=== PATIENT | female | born 1985 ===

== ENCOUNTER 2022-01-30 13:33 | Emergency (ER) | payer OTHER, SELFPAY ==
--- NOTE | ~2022-01-30 | CT_ITS ---
EXAMINATION: NONCONTRAST HEAD CT NONCONTRAST CERVICAL SPINE CT INDICATION INFORMATION: Right occipital pain and swelling. Neck discomfort. COMPARISON: None TECHNIQUE: Separate noncontrast CT examinations of the head and cervical spine were performed. Coronal and sagittal images were created for each examination at the technologist workstation. This CT examination was performed using dose optimization techniques as appropriate, variously including the following: *Automated exposure control *Adjustment of mA and/or kV according to patient size (this includes techniques or standardized protocols for targeted exams where dose is matched to indication/reason for exam; i.e. extremities or head) *Use of iterative reconstruction technique DLP: 1502 mGy-cm FINDINGS: HEAD: No intra or extra-axial fluid collection, hemorrhage, or mass. No ventriculomegaly. No midline shift or herniation. Basal cisterns are patent. Knox-white matter differentiation is maintained. No territorial encephalomalacia. No significant volume loss. There is no abnormal attenuation within the brain parenchyma. No calvarial fracture or soft tissue abnormality. The mastoid air cells and visualized portions of the paranasal sinuses are well aerated. CERVICAL SPINE: Alignment: Straightening of the normal cervical lordosis. No subluxation. Vertebra: No acute fracture. No prevertebral soft tissue swelling. Degenerative disc disease: No significant. Preserved intervertebral disc heights. Other findings: No cervical lymphadenopathy. Visualized major salivary glands and thyroid gland are unremarkable. Visualized lung apices are clear. CT/CT head/brain wo IV con IMPRESSION: 1. No intracranial hemorrhage or calvarial fracture. 2. No subluxation or acute cervical spine fracture.
--- NOTE | ~2022-01-30 | CT_ITS ---
EXAMINATION: NONCONTRAST HEAD CT NONCONTRAST CERVICAL SPINE CT INDICATION INFORMATION: Right occipital pain and swelling. Neck discomfort. COMPARISON: None TECHNIQUE: Separate noncontrast CT examinations of the head and cervical spine were performed. Coronal and sagittal images were created for each examination at the technologist workstation. This CT examination was performed using dose optimization techniques as appropriate, variously including the following: *Automated exposure control *Adjustment of mA and/or kV according to patient size (this includes techniques or standardized protocols for targeted exams where dose is matched to indication/reason for exam; i.e. extremities or head) *Use of iterative reconstruction technique DLP: 1502 mGy-cm FINDINGS: HEAD: No intra or extra-axial fluid collection, hemorrhage, or mass. No ventriculomegaly. No midline shift or herniation. Basal cisterns are patent. [place]-white matter differentiation is maintained. No territorial encephalomalacia. No significant volume loss. There is no abnormal attenuation within the brain parenchyma. No calvarial fracture or soft tissue abnormality. The mastoid air cells and visualized portions of the paranasal sinuses are well aerated. CERVICAL SPINE: Alignment: Straightening of the normal cervical lordosis. No subluxation. Vertebra: No acute fracture. No prevertebral soft tissue swelling. Degenerative disc disease: No significant. Preserved intervertebral disc heights. Other findings: No cervical lymphadenopathy. Visualized major salivary glands and thyroid gland are unremarkable. Visualized lung apices are clear. CT/CT cervical spine wo IV con IMPRESSION: 1. No intracranial hemorrhage or calvarial fracture. 2. No subluxation or acute cervical spine fracture.
[2022-01-30 15:33] VITALS: BP 171/81; PULSE 82; RESP 16; TEMP 36.2; O2SAT 97; BMI 50.6
--- NOTE | 2022-01-30 15:35 | ED_ITS ---
HPI - Headache General Chief Complaint: Headache Stated Complaint: Abscess Back of Head No Injury Time Seen by Provider: 01/30/22 16:01 Related Data Previous Rx's Medication Instructions Recorded cyclobenzaprine 10 mg tablet 10 mg PO BEDTIME PRN muscle spasm 01/30/22 #7 tabs ketorolac 10 mg tablet 10 mg PO QID PRN pain 5 days #20 01/30/22 tabs prednisone 20 mg tablet 40 mg PO DAILY 5 days #10 tabs 01/30/22 Allergies Allergy/AdvReac Type Severity Reaction Status Date / Time acetaminophen [From Vicodin] Allergy Intermediate Hives Verified 01/30/22 15:34 hydrocodone [From Vicodin] Allergy Intermediate Hives Verified 01/30/22 15:34 PMF Social History Social History Advance Directives: No Advance Directives Information Provided: No Physical Exam 2 Vital Signs: Vital Signs: Last Vital Signs Temp 97.2 F 01/30/22 15:33 Pulse 82 01/30/22 15:33 Resp 16 01/30/22 15:33 BP 171/81 H 01/30/22 15:33 Pulse Ox 97 01/30/22 15:33 O2 Del Method 01/30/22 15:33 BMI result Body Mass Index 50.6 Course Reevaluation(s) Reevaluation #1: Right occipital swelling and tenderness for 3 days causing headache and blurry vision. Head CT/CBC was ordered from triage. Time: 15:35 Medications Administered Discontinued Medications Generic Name Dose Route Start Last Admin Trade Name Freq PRN Reason Stop Dose Admin Acetaminophen 650 mg 01/30/22 16:36 01/30/22 17:07 Acetaminophen 325 Mg Tablet PO 01/30/22 16:37 650 mg ONCE ONE Administration Ketorolac Tromethamine 30 mg 01/30/22 19:40 01/30/22 19:56 Ketorolac Tromethamine 30 Mg/Ml Vial IM 01/30/22 19:41 30 mg ONCE ONE Administration Prednisone 40 mg 01/30/22 16:31 01/30/22 17:07 Prednisone 20 Mg Tablet PO 01/30/22 16:32 40 mg ONCE ONE Administration MDM - Headache Lab Data Result diagrams: 01/30/22 16:17 01/30/22 16:17 Labs: Lab Results 01/30/22 01/30/22 Range/Units 16:17 16:17 WBC 8.5 (4.8-10.8) X10*3/uL RBC 4.52 (4.20-5.50) X10*6/uL Hgb 10.2 L (12.0-16.0) g/dl Hct 34.4 L (37.0-47.0) % MCV 76.1 L (80.0-98.0) fL MCH 22.6 L (27.0-33.0) pg MCHC 29.7 L (31.0-35.0) g/dl RDW 16.5 H (11.0-16.0) % Plt Count 302 (160-400) X10*3/uL MPV 10.1 (9.4-12.3) fL Immature Gran % (Auto) 0.7 H (0.0-0.4) % Neut % (Auto) 59.0 (45-73) % Lymph % (Auto) 27.6 (20-40) % [place] % (Auto) 5.0 (2-11) % Eos % (Auto) 7.3 H (0-4) % Baso % (Auto) 0.4 (0-2) % Lymph # (Auto) 2.4 (1.2-4.9) X10*3/uL [place] # (Auto) 0.4 (0.1-1.2) X10*3/uL Eos # (Auto) 0.6 H (0.0-0.4) X10*3/uL Baso # (Auto) 0.0 (0.0-0.2) X10*3/uL Abs Immat Gran (auto) 0.06 H (0.00-0.03) X10*3/uL Absolute Neuts (auto) 5.0 (2.0-8.3) x10*3/uL Absolute Nucleated RBC 0.000 (0.0-0.012) X10*3/uL Nucleated RBC % (auto) 0.0 (0.0-0.2) /100WBC Sodium 142 (135-145) mmol/L Potassium 4.2 (3.3-5.1) mmol/L Chloride 106 (96-108) mmol/L Carbon Dioxide 28 (22-29) mmol/L Anion Gap 12 (12-20) BUN 13 (9-16) mg/dL Creatinine 0.78 (0.5-1.4) mg/dL Estim Creat Clear Calc 133.6 Estimated GFR > 60 Random Glucose 85 (60-115) mg/dL Calcium 8.9 (8.4-10.2) mg/dL Total Bilirubin 0.2 (0.0-1.0) mg/dL AST 15 (5-31) U/L ALT 22 (0-31) U/L Alkaline Phosphatase 175 H (39-117) U/L Total Protein 6.6 (6.5-8.0) g/dL Albumin 3.9 (3.5-5.0) g/dL Discharge Plan Discharge Clinical Impression: Headache, Migraine Patient Disposition: Home, Self-Care Instructions: Migraine Headache (ED), Muscle Spasm (ED), General Headache (ED) Additional Instructions: labs, head CT scan, and cerivical SPine CT scan is normal. You will need Follow up with your PCP and neurologist. Return to the ED immediately for any loss of vision, slurred speech, facial droop, paralysis of extremities, neck stiffness, fever, chills, photophobia, nausea, vomiting, worsening headache, ear pain, ear discharge, swelling redness behind on from here, chest pain, shortness of breath, or any other concerning symptoms. Prescriptions: New ketorolac 10 mg tablet 10 mg PO QID PRN (Reason: pain) 5 Days Qty: 20 0RF Rx Instructions: REceived 30mg IM of toradol prednisone 20 mg tablet 40 mg PO DAILY 5 Days Qty: 10 0RF cyclobenzaprine 10 mg tablet 10 mg PO BEDTIME PRN (Reason: muscle spasm) Qty: 7 0RF Rx Instructions: side effect is drowsiness. Referrals: Lucy King MD [Physician] - (Headache. management of migraines.) Stand Alone Forms: Work/School Release Interventions: ED Discharge Assessment Last Done: 01/30/22 20:37 Discharge Date/Time: 01/30/22 20:38 Print Language: Wolof
[2022-01-30 16:24] LABS: MANUAL DIFF FLAG NO
--- NOTE | 2022-01-30 16:29 | ED.GENADULT ---
HPI - General Adult General Chief complaint: Headache Stated complaint: Abscess Back of Head No Injury Time Seen by Provider: 01/30/22 16:01 Source: patient Mode of arrival: ambulatory Limitations: no limitations History of Present Illness HPI narrative: 36 yold female with pmh of migraines and muscle spasm presetns to the ED for right occipital headache for the past two days. Patient denies ear pain, sore throat, fever, chills, ear discharge, loss of visions, slurred speech, paralysis of extremities. Patient denies any recent trauma to the head. patient denies any neck stiffness, photophobia, or rash. Patient secondary complaint is muscle spasm of right shoulder muscles. Patient denies any pleurisy, chest pain, shortness of breath, or coughing up blood. Related Data Previous Rx's Medication Instructions Recorded cyclobenzaprine 10 mg tablet 10 mg PO BEDTIME PRN muscle spasm 01/30/22 #7 tabs ketorolac 10 mg tablet 10 mg PO QID PRN pain 5 days #20 01/30/22 tabs prednisone 20 mg tablet 40 mg PO DAILY 5 days #10 tabs 01/30/22 Allergies Allergy/AdvReac Type Severity Reaction Status Date / Time acetaminophen [From Vicodin] Allergy Intermediate Hives Verified 01/30/22 15:34 hydrocodone [From Vicodin] Allergy Intermediate Hives Verified 01/30/22 15:34 Review of Systems Review of Systems: RIght sided headcahe Yes all other systems are reviewed and are negative [facility] Social History Social History Advance Directives: No Advance Directives Information Provided: No Physical Exam ED Vital Signs: Vital Signs - 24 hr 01/30/22 15:33 Temperature 97.2 F Pulse Rate 82 Respiratory Rate 16 Blood Pressure 171/81 H Pulse Oximetry 97 Oxygen Delivery Method Room Air BMI result Body Mass Index 50.6 Const General: cooperative, healthy appearing, comfortable, no acute distress, well developed, alert, awake and Physically active Orientation/consciousness: patient oriented x3 HENMT Head: Yes normal to inspection, Yes No palpable skull fracture present, Yes normocephalic, Yes atraumatic and No abrasion Head images: 1. positive for tenderness on palpation. negative for erythema, mass, fluctuance, or ecchymosis. Ears: hearing grossly normal bilaterally, external ears normal, TM's normal bilaterally, EAC's normal, mastoids normal and no periauricular adenopathy Throat: Yes posterior oropharynx normal, Yes tonsils normal and Yes uvula midline Eyes General: appearance normal, both eyes and all related structures Neck Neck: Yes normal visual inspection, Yes full ROM, Yes no lymphadenopathy, Yes no meningeal signs, Yes trachea midline, Yes supple, No anterior neck swelling and No tender Chest Chest palpation & inspection: normal inspection of the chest and normal palpation of entire chest wall Resp Effort & Inspection: normal respiratory effort and able to speak in complete sentences Auscultation: clear to auscultation bilaterally Cardio Jugular venous distension: no JVD Heart sounds: S1 normal heart sound present and S2 normal heart sound present GI Inspection: Yes normal to inspection and No abdominal wall ecchymosis Palpation (GI): Soft to palpation, not firm, nontender, no guarding and not rigid General: No CVA tenderness and Yes no CVA tenderness Back/Spine/Pelvis Back: no CVA tenderness, No CVA tenderness and No back tenderness Skin General skin exam: no rashes or lesions noted and elasticity normal Neuro General: patient oriented x3, gait normal, tone normal, no meningeal signs and CN's II-XI intact bilaterally Cranial nerves: Yes CN's II-XII intact bilaterally Extrem General: Yes normal to inspection and Yes full ROM Psych Appearance: grossly normal, well kempt and not disheveled Course Course Course Narrative: labs and head Ct scan ordered by Triage. Will give steriords and tyelnol. patient states has taken allergies in the past. Reevaluation(s) Reevaluation #1: Head CT and cervical spine CT scan is normal. NEgative for any neuro deficitis. patient denies any blurry vision presently in the ED. History and exam indicate tension headache vs migraine, vs muscle spams. Patient headache resolved. patient informed to follow up [facility] neurologist. Time: 20:11 Medications Administered Discontinued Medications Generic Name Dose Route Start Last Admin Trade Name Nestorq PRN Reason Stop Dose Admin Acetaminophen 650 mg 01/30/22 16:36 01/30/22 17:07 Acetaminophen 325 Mg Tablet PO 01/30/22 16:37 650 mg ONCE ONE Administration Ketorolac Tromethamine 30 mg 01/30/22 19:40 01/30/22 19:56 Ketorolac Tromethamine 30 Mg/Ml Vial IM 01/30/22 19:41 30 mg ONCE ONE Administration Prednisone 40 mg 01/30/22 16:31 01/30/22 17:07 Prednisone 20 Mg Tablet PO 01/30/22 16:32 40 mg ONCE ONE Administration Medical Decision Making MDM Narrative Medical decision making narrative: Headache, migraine Lab Data Result diagrams: 01/30/22 16:17 01/30/22 16:17 Labs: Lab Results 01/30/22 01/30/22 Range/Units 16:17 16:17 WBC 8.5 (4.8-10.8) X10*3/uL RBC 4.52 (4.20-5.50) X10*6/uL Hgb 10.2 L (12.0-16.0) g/dl Hct 34.4 L (37.0-47.0) % MCV 76.1 L (80.0-98.0) fL MCH 22.6 L (27.0-33.0) pg MCHC 29.7 L (31.0-35.0) g/dl RDW 16.5 H (11.0-16.0) % Plt Count 302 (160-400) X10*3/uL MPV 10.1 (9.4-12.3) fL Immature Gran % (Auto) 0.7 H (0.0-0.4) % Neut % (Auto) 59.0 (45-73) % Lymph % (Auto) 27.6 (20-40) % [place] % (Auto) 5.0 (2-11) % Eos % (Auto) 7.3 H (0-4) % Baso % (Auto) 0.4 (0-2) % Lymph # (Auto) 2.4 (1.2-4.9) X10*3/uL [place] # (Auto) 0.4 (0.1-1.2) X10*3/uL Eos # (Auto) 0.6 H (0.0-0.4) X10*3/uL Baso # (Auto) 0.0 (0.0-0.2) X10*3/uL Abs Immat Gran (auto) 0.06 H (0.00-0.03) X10*3/uL Absolute Neuts (auto) 5.0 (2.0-8.3) x10*3/uL Absolute Nucleated RBC 0.000 (0.0-0.012) X10*3/uL Nucleated RBC % (auto) 0.0 (0.0-0.2) /100WBC Sodium 142 (135-145) mmol/L Potassium 4.2 (3.3-5.1) mmol/L Chloride 106 (96-108) mmol/L Carbon Dioxide 28 (22-29) mmol/L Anion Gap 12 (12-20) BUN 13 (9-16) mg/dL Creatinine 0.78 (0.5-1.4) mg/dL Estim Creat Clear Calc 133.6 Estimated GFR > 60 Random Glucose 85 (60-115) mg/dL Calcium 8.9 (8.4-10.2) mg/dL Total Bilirubin 0.2 (0.0-1.0) mg/dL AST 15 (5-31) U/L ALT 22 (0-31) U/L Alkaline Phosphatase 175 H (39-117) U/L Total Protein 6.6 (6.5-8.0) g/dL Albumin 3.9 (3.5-5.0) g/dL Discharge Plan Discharge Clinical Impression: Headache, Migraine Patient Disposition: Home, Self-Care Instructions: Migraine Headache (ED), Muscle Spasm (ED), General Headache (ED) Additional Instructions: labs, head CT scan, and cerivical SPine CT scan is normal. You will need Follow up with your PCP and neurologist. Return to the ED immediately for any loss of vision, slurred speech, facial droop, paralysis of extremities, neck stiffness, fever, chills, photophobia, nausea, vomiting, worsening headache, ear pain, ear discharge, swelling redness behind on from here, chest pain, shortness of breath, or any other concerning symptoms. Prescriptions: New ketorolac 10 mg tablet 10 mg PO QID PRN (Reason: pain) 5 Days Qty: 20 0RF Rx Instructions: REceived 30mg IM of toradol prednisone 20 mg tablet 40 mg PO DAILY 5 Days Qty: 10 0RF cyclobenzaprine 10 mg tablet 10 mg PO BEDTIME PRN (Reason: muscle spasm) Qty: 7 0RF Rx Instructions: side effect is drowsiness. Referrals: Lucy King MD [Physician] - (Headache. management of migraines.) Stand Alone Forms: Work/School Release Interventions: ED Discharge Assessment Last Done: 01/30/22 20:37 Discharge Date/Time: 01/30/22 20:38 Print Language: Citizen [place]
[2022-01-30 16:38] LABS: Basophils Percent Auto 0.4 % (0-2); Eosinophils Absolute Auto 0.6 X10*3/uL (0.0-0.4); Eosinophils Percent Auto 7.3 % (0-4); Hematocrit 34.4 % (37.0-47.0); Hemoglobin 10.2 g/dl (12.0-16.0); Imm Gran Abs Auto 0.06 X10*3/uL (0.00-0.03); Imm Gran Pct Auto 0.7 % (0.0-0.4); Lymphocytes Absolute Auto 2.4 X10*3/uL (1.2-4.9); Lymphocytes Percent Auto 27.6 % (20-40); Mean Corpuscular HGB Conc 29.7 g/dl (31.0-35.0); Mean Corpuscular Hemoglobin 22.6 pg (27.0-33.0); Mean Corpuscular Volume 76.1 fL (80.0-98.0); Mean Platelet Volume 10.1 fL (9.4-12.3); Monocytes Absolute Auto 0.4 X10*3/uL (0.1-1.2); Platelet Count 302 X10*3/uL (160-400); Red Blood Count 4.52 X10*6/uL (4.20-5.50); Red Cell Distribution Width 16.5 % (11.0-16.0); White Blood Count 8.5 X10*3/uL (4.8-10.8)
[2022-01-30 16:55] LABS: Alanine Aminotransferase 22 U/L (0-31); Albumin Level 3.9 g/dL (3.5-5.0); Alkaline Phosphatase 175 U/L (39-117); Anion Gap 12 (12-20); Aspartate Amino Transferase 15 U/L (5-31); Bilirubin Total 0.2 mg/dL (0.0-1.0); Blood Urea Nitrogen 13 mg/dL (9-16); Calcium 8.9 mg/dL (8.4-10.2); Carbon Dioxide 28 mmol/L (22-29); Chloride 106 mmol/L (96-108); Creatinine Clr Calc Pharmacy 133.6; Estimated Glomerular Filt Rate > 60; Glucose Random 85 mg/dL (60-115); Potassium 4.2 mmol/L (3.3-5.1); Sodium 142 mmol/L (135-145); Total Protein 6.6 g/dL (6.5-8.0)
[2022-01-30] MEDS: Acetaminophen 325 MG TABLET 650 MG PO (17:07)
[2022-01-30] MEDS: predniSONE 20 MG TABLET 40 MG PO (17:07)
[2022-01-30] MEDS: Ketorolac Tromethamine 30 MG/ML VIAL IM (19:56)
--- NOTE | 2022-01-30 20:00 | PC.NURSE ---
pt medicated according to MAR reported 9/10 pain at this time.
== END 2022-01-30 20:38 | disposition home or self-care (01) ==
PROVIDERS: Emergency Medicine; Physician Assistant; Emergency Provider Internal Medicine
DX: G43.909 Migraine, unspecified, not intractable, without status migrainosus (principal); M54.2 Cervicalgia; Z79.899 Other long term (current) drug therapy
CPT/HCPCS: 36415; 70450; 72125; 80053; 85025; 96372; 99283; 99284; J1885

== ENCOUNTER → 2023-01-03 15:47 | Outpatient (BNVA) | payer OTHER, SELFPAY | PROVIDERS: PCP Family Medicine; Visit Provider Physician Assistant Surgical ==

== ENCOUNTER 2023-01-10 16:21 | Outpatient (AMB) | payer OTHER, SELFPAY ==
--- NOTE | 2023-01-10 15:37 | MHC.OFFVISWM ---
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 Required: No Allergies acetaminophen [From Vicodin] Allergy (Intermediate, Verified 01/03/23 16:00) Hives hydrocodone [From Vicodin] Allergy (Intermediate, Verified 01/03/23 16:00) Hives Medication List - Last Reconciled 01/10/23 by GIANCARLO Jones fluticasone propionate 110 mcg/actuation (Flovent HFA) 2 puffs inhalation BID lisinopril 5 mg PO DAILY melatonin mg PO BEDTIME PRN [multivitamin w minerals PO DAILY] topiramate 25 mg PO DAILY HPI HPI Comments History of Present Illness Details Pt is here to start the [facility] surgical weight loss program. She heard about our program from her PCP. Her goal is to lose weight and achieve a healthy lifestyle as well as to improve, if not resolve, obesity related medical conditions, including htn. She reports first being concerned about her weight 7-8 years ago, highest weight to date was 292. Current weight is 289 pounds with a BMI of 51.2. She has tried multiple methods of weight loss including fad diets, [facility] weight loss program without permanent results as she had anxiety at the time of surgery. She lives with her 2 kids and 2 dogs. 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 She wakes at:?6am, and goes to bed at?10 pm. Dinner is at 5-6pm. Breakfast: naked fruit smoothie, coffee w almond milk/stevia AM snack: skip Lunch: shrimp scampi w pasta PM snack: skip Dinner: leftover salad or baked chicken After dinner: chips or popcorn once weekly Other snacks: chips or candy Liquids: 40-60 oz water, 12 oz diet coke/diet pepsi, no sugar iced tea Alcohol/marijuana/tobacco intake: 2 etoh beverages per week or less, edible cannabis for knee or shoulder pain QOD, no tobacco Exercise: walking, 200 calories 2 days per week, no gym membership, weights and bands at home, could join a gym if wanted. GERD score: 19 YIN score: 1 ESS score: 6 QOL score: 96 [facility] Surgical History (Updated 01/03/23 @ 16:06 by DONNA Aceves) Hx of breast reduction, elective Family History (Updated 01/03/23 @ 16:10 by DONNA Aceves) Mother No problems noted. 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 She states this is her third attempt at a SWL program (x 2 at [facility]-stopped prior to surgery due to anxiety) Blood work, h pylori , CXR, ECG, Abd US and UGI have been ordered. She is being scheduled for RD and BH initial consultations. She will start SWL classes and watch the first three videos before her next appointment. ? Adequate sleep of 7-8 hours per night discussed, awakening at 6 am and going to bed around 10 pm ? Purchase body composition analyzer scale (Benjy ellis or Guy recommended) and check weight weekly. The best time to do this is first thing in the morning after going to the bathroom. 1. Nutritional counseling: Be sure to careful read the number of scoops per shake Start with 1 Celebrate Rebuild shake ([facility] [employer], [place], [employer]), (2 scoops in 20 oz unsweetened almond milk) at 7am-9am 2 protein bars (Celebrate bars at [facility] [employer], [place], [employer]) at 10am-12pm and another one at 2pm-4pm Dinner at 530-6pm (10 forks of protein and 10 forks of salad/vegetables). Meal to include lean meat (beef, fish, pork, turkey, chicken), cooked vegetables or a salad with olive oil and/or fruits (berries, pears, apples, kiwi). Avoid salt, breads, potatoes, rice, pasta, desserts. Try to drink 64 oz of water daily and avoid soda and juices. ?2. Each shake would be drunk slowly, like coffee in a period of 2 hours. ?3. Cut each bar in 4 pieces and eat each piece in 30 min ?to make each bar last 2 hours. ?4. I emphasized the importance of measuring accurately the food portion and measure it carefully when serving the food on the plate ?5. The meal portions include 10 full-size forks of meat and 10 full-size forks of salad. You always eat the meat portion but you can replace up to half of the forks of salad/vegetables with rice, potatoes or pasta, or a fruit ?if you like. The less you do it the better weight loss will be. ?6. One full-size fork is what can be scooped on the fork without falling aside and not what can be bit with the fork. Use regular forks like those you find in a typical restaurant. ?7.? Please send me weight measurements as soon as possible and then once a week. Always include your diet and exercise plan. Alternatively come weekly at the office for weight checks and send me the measurements. ?8. Exercise counseling: Begin by watching a stretching for beginners video. Start slowly and begin to stretch your muscles. You should do this before and after each exercise session to prevent injury. Please join [employer] gym near your home. Ask the assistant housekeeping manager or one of the trainers how to use the machines if you are unfamiliar with them. Start elliptical with a resistance of 2. Increase resistance by 1 every 3 min to your most comfortable resistance with a max resistance of 8. Reduce the resistance by 1 every 3 minutes back down to 2 and repeat cycles for 300 calories. Alternatively, start treadmill with a speed of 3.0 and incline of 0, increasing incline by 1 every 3 minutes to the highest comfortable level (max 6 for now) then decrease in the same fashion. Repeat process to a goal of 300 calories. Goal of 2000 calories burned or more weekly. You may also consider use of the stationary bike. The easiest would be to chose the fat-burn or interval training program on the machine and do this until you reach the 300 calorie goal. Alternatively, you can manually adjust the resistance in a similar fashion as mentioned above, (resistance of 2-8 with a goal speed of 12 mph). Tracking calories is essential. 9. Alternatively start walking outside daily, tracking calories with a goal of 300 calories per day, daily. You can download the [employer] which can track your time, distance and calories while walking outside. You press start in the devin when you start and then stop when you are finished. 10.? It is important to avoid for at least 18 months postoperatively and it has been discussed at the information session 11. Please get labs, EKG and chest X-Ray within 1 week. 12. Discussed and answered all questions regarding?obtained consent to participate in the [place] [facility] Bariatric?Registry. 13. Please follow the diet plan exactly, without any change. If you do not like something about the plan or you feel hungry, you need to communicate with me so I can help you revise the plan. You should not change the plan yourself. Text me at [phone] 14. Goal is to lose at least 12 pounds in the first month 15. Goal is to lose 10% of your weight before surgery, which is about 29 lbs. Ultimate weight goal: 260 lbs before surgery Patient is morbidly obese and is not considered stable at this time.?I spent a total of 70 minutes reviewing/updating records, examining the patient and counseling the patient on weight management as detailed above. Orders: Orders Insulin Today E66.01 - Morbid (severe) obesity due to excess calories Lipid Panel Today E66.01 - Morbid (severe) obesity due to excess calories Complete Blood Count Auto Diff Today E66.01 - Morbid (severe) obesity due to excess calories Zinc Today E66.01 - Morbid (severe) obesity due to excess calories Comprehensive Met. Panel Today E66.01 - Morbid (severe) obesity due to excess calories Vitamin A Today E66.01 - Morbid (severe) obesity due to excess calories C Reactive Protein Today E66.01 - Morbid (severe) obesity due to excess calories PTHI Today E66.01 - Morbid (severe) obesity due to excess calories TSH reflex Free T4 Today E66.01 - Morbid (severe) obesity due to excess calories H Pylori Breath Test Today E66.01 - Morbid (severe) obesity due to excess calories Hemoglobin A1c Today E66.01 - Morbid (severe) obesity due to excess calories US abdomen comp w elastography Today E66.01 - Morbid (severe) obesity due to excess calories ECG 12 lead EKG Today E66.01 - Morbid (severe) obesity due to excess calories FL upper GI w air Today E66.01 - Morbid (severe) obesity due to excess calories IRON PROFILE Today E66.01 - Morbid (severe) obesity due to excess calories Vitamin B12 and Folate Today E66.01 - Morbid (severe) obesity due to excess calories Vitamin B1 Today E66.01 - Morbid (severe) obesity due to excess calories Ferritin Today E66.01 - Morbid (severe) obesity due to excess calories Vitamin D 25-OH Total Today E66.01 - Morbid (severe) obesity due to excess calories XR chest 2V Today E66.01 - Morbid (severe) obesity due to excess calories Referrals Behavioral Health Referral E66.01 - Morbid (severe) obesity due to excess calories Nutrition/Dietitian Referral E66.01 - Morbid (severe) obesity due to excess calories Telehealth Telehealth Location of provider rendering services: practice address Location of patient: address on file Patient Identification confirmed using: Name, : Yes Telehealth method: voice only Patient verbally consented to treatment: Yes Patient verbally consented to billing insurance company: Yes Patient informed of any privacy concerns related to visit: Yes Minutes spent on Phone/Video with Pt.: 40 Coding Level of Care Code Tele New Pt Level 5 (54306) Diagnoses Morbid obesity E66.01 Time Spent (min) 04
[2023-01-10 16:56] VITALS: BMI 51.2
== END 2023-01-10 16:46 | disposition home or self-care (01) ==
LOC: HO.HBS 16:21
PROVIDERS: PCP Family Medicine; Visit Provider Physician Assistant Surgical
DX: E66.01 Morbid (severe) obesity due to excess calories (principal); Z68.43 Body mass index [BMI] 50.0-59.9, adult
CPT/HCPCS: 99204

== ENCOUNTER → 2023-01-10 16:21 | Outpatient (BNVA) | payer OTHER, SELFPAY | PROVIDERS: PCP Family Medicine; Visit Provider Physician Assistant Surgical | DX: E66.01 Morbid (severe) obesity due to excess calories (principal) ==

== ENCOUNTER 2023-02-06 09:21 | Outpatient (REF) | payer OTHER, SELFPAY ==
[2023-02-06 10:47] LABS: MANUAL DIFF FLAG NO
[2023-02-06 11:12] LABS: Estimated Average Glucose 120 mg/dL; Hemoglobin A1c % 5.8 % (<6.0)
[2023-02-06 11:13] LABS: Basophils Percent Auto 0.3 % (0-2); Eosinophils Absolute Auto 0.2 X10*3/uL (0.0-0.4); Eosinophils Percent Auto 1.8 % (0-4); Hematocrit 32.2 % (37.0-47.0); Hemoglobin 9.6 g/dl (12.0-16.0); Imm Gran Pct Auto 0.8 % (0.0-0.4); Lymphocytes Absolute Auto 1.5 X10*3/uL (1.2-4.9); Lymphocytes Percent Auto 12.7 % (20-40); Mean Corpuscular HGB Conc 29.8 g/dl (31.0-35.0); Mean Corpuscular Hemoglobin 21.7 pg (27.0-33.0); Mean Corpuscular Volume 72.7 fL (80.0-98.0); Mean Platelet Volume 10.6 fL (9.4-12.3); Monocytes Absolute Auto 0.5 X10*3/uL (0.1-1.2); Neutrophils Absolute Auto 9.6 x10*3/uL (2.0-8.3); Neutrophils Percent Auto 80.4 % (45-73); Platelet Count 271 X10*3/uL (160-400); Red Blood Count 4.43 X10*6/uL (4.20-5.50); Red Cell Distribution Width 15.2 % (11.0-16.0); White Blood Count 11.9 X10*3/uL (4.8-10.8)
[2023-02-06 11:44] LABS: Alanine Aminotransferase 15 U/L (0-31); Albumin Level 4.1 g/dL (3.5-5.0); Alkaline Phosphatase 123 U/L (39-117); Anion Gap 11 (12-20); Aspartate Amino Transferase 13 U/L (5-31); Bilirubin Total 0.5 mg/dL (0.0-1.0); Blood Urea Nitrogen 15 mg/dL (9-16); C Reactive Protein 2.58 mg/dL (< or = 0.50); Carbon Dioxide 23 mmol/L (22-29); Chloride 108 mmol/L (96-108); Cholesterol 175 mg/dL (<200); Estimated Glomerular Filt Rate > 60; Glucose Random 94 mg/dL (60-115); HDL Cholesterol 44 mg/dL (>40); Iron 55 mcg/dL (30-160); LDL Cholesterol Calculated 107 mg/dL (<100); Percent Iron Saturation 17 % (15-50); Potassium 3.9 mmol/L (3.3-5.1); Sodium 138 mmol/L (135-145); Total Iron Binding Capacity 318 mcg/dL (228-428); Total Protein 7.1 g/dL (6.5-8.0); Triglycerides 123 mg/dL (<150); Unsaturated Iron Binding 263 ug/dL
[2023-02-06 12:03] LABS: Ferritin 30 ng/mL (10-122); Insulin 8 uU/mL (2-29); TSH reflex Free T4 1.66 uIU/mL (0.32-4.0); Vitamin D 25-OH Total 35.4 ng/mL (>30)
[2023-02-06 12:13] LABS: Vitamin B12 730 pg/mL (200-900)
[2023-02-07 10:50] LABS: H Pylori Breath Test Negative (Negative)
[2023-02-08 11:59] LABS: Calcium (PTHI) 8.8 mg/dL (8.6-10.2); PTHI 84 pg/mL (16-77)
[2023-02-09 15:59] LABS: Zinc 50 mcg/dL (60-130)
[2023-02-11 01:28] LABS: Vitamin B1 14 nmol/L (8-30)
[2023-02-12 02:54] LABS: Vitamin A 32 mcg/dL (38-98)
== END 2023-02-06 09:22 | disposition home or self-care (01) ==
LOC: HO.LAB 09:21
PROVIDERS: PCP Family Medicine; Visit Provider Physician Assistant Surgical
DX: E66.01 Morbid (severe) obesity due to excess calories (principal); Z79.899 Other long term (current) drug therapy
CPT/HCPCS: 36415; 80053; 80061; 82306; 82607; 82728; 82746; 83013; 83036; 83525; 83540; 83970; 84425; 84443; 84590; 84630; 85025; 86140; 99211

== ENCOUNTER 2023-02-06 09:43 | Outpatient (AMB) | payer OTHER, SELFPAY ==
--- NOTE | 2023-02-06 09:57 | MHC.OFFVISWM ---
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: No Allergies acetaminophen [From Vicodin] Allergy (Intermediate, Verified 01/03/23 16:00) Hives hydrocodone [From Vicodin] Allergy (Intermediate, Verified 01/03/23 16:00) Hives Medication List - Last Reconciled 02/06/23 by GIANCARLO Jones fluticasone propionate 110 mcg/actuation (Flovent HFA) 2 puffs inhalation BID lisinopril 5 mg PO DAILY melatonin mg PO BEDTIME PRN [multivitamin w minerals PO DAILY] topiramate 25 mg PO DAILY HPI HPI Comments History of Present Illness Details The patient is a pleasant 37 year old female who returns to the clinic for pre-operative surgical weight loss management. They were last seen in the office on 289, recorded weight at that time was 289 pounds, with a BMI of 51.2. Today's weight is 285.8 pounds and BMI is 50.6. There has been a weight loss of 3.2 pounds since initiating the surgical weight loss program on 01/03/23 with a total body weight loss of 1.1 %. Pre op work up completed as follows: SWL classes:? [] BH appts: 02/19/23 ? ? RD appts: 02/11/23 Labs: 02/06/23 H. pylori: 02/06/23 CXR: 02/06/23 EK02/06/23 ABD U/S: 03/19/23 UGI: 03/19/23 The patient reports she is trying to follow the plans. She was doing 2 shakes, 2 bars and 2 meals. The patient does have a body composition scale. They also have not been communicating weekly. Current meal plan includes: 1 Celebrate Rebuild shake ([facility] [employer], [employer], [place]), (2 scoops in 20 oz unsweetened almond milk) at 7am-9am 2 protein bars (Celebrate bars at [facility] [employer], [employer], [place]) at 10am-12pm and another one at 2pm-4pm Dinner at 530-6pm (10 forks of protein and 10 forks of salad/vegetables). Drinkning 60 oz daily Current exercise plan includes: walking 3 days per week now down to 2 days per week due to grad school Just joined [facility] Surgical History (Updated 01/03/23 @ 16:06 by DONNA Aceves) Hx of breast reduction, elective Family History (Updated 01/03/23 @ 16:10 by DONNA Aceves) Mother No problems noted. 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 We discussed reading the e-mail that I had center outlining the plan exactly as well as starting exercise. She states that she has been very busy with her graduate school studies which should conclude in the next couple of weeks. We also discussed her lack of communication. Discussed the importance of texting weekly including her weight measurements and if she is having any problems or questions regarding her meal plan or exercise plan. Return to clinic 3 weeks. Coding Level of Care Code Est Pt Level 3 (48490) Diagnoses Morbid obesity E66.01
[2023-02-06 10:12] VITALS: BMI 50.6
== END 2023-02-06 10:14 | disposition home or self-care (01) ==
PROVIDERS: PCP Family Medicine; Visit Provider Physician Assistant Surgical
DX: E66.01 Morbid (severe) obesity due to excess calories (principal); Z68.43 Body mass index [BMI] 50.0-59.9, adult
CPT/HCPCS: 99213

== ENCOUNTER → 2023-02-11 14:15 | Outpatient (BNVA) | payer OTHER, SELFPAY | PROVIDERS: PCP Family Medicine; Visit Provider Dietitian, Registered | DX: E66.9 Obesity, unspecified (principal); Z71.3 Dietary counseling and surveillance | CPT/HCPCS: 97802 ==

== ENCOUNTER → 2023-02-26 16:22 | Outpatient (BNVA) | payer OTHER, SELFPAY | PROVIDERS: PCP Family Medicine; Visit Provider Counselor Mental Health ==

== ENCOUNTER 2023-03-06 15:02 | Outpatient (AMB) | payer OTHER, SELFPAY ==
[2023-03-06 08:04] VITALS: BMI 45.6
--- NOTE | 2023-03-06 08:04 | A.OFFVIS_ITS ---
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: No Allergies acetaminophen [From Vicodin] Allergy (Intermediate, Verified 01/03/23 16:00) Hives hydrocodone [From Vicodin] Allergy (Intermediate, Verified 01/03/23 16:00) Hives Medication List - Last Reconciled 03/06/23 by GIANCARLO Jones fluticasone propionate 110 mcg/actuation (Flovent HFA) 2 puffs inhalation BID lisinopril 5 mg PO DAILY melatonin mg PO BEDTIME PRN [multivitamin w minerals PO DAILY] norethindrone (contraceptive) 0.35 mg PO DAILY topiramate 25 mg PO DAILY vitamin A palmitate 3,000 mcg PO DAILY 90 days zinc gluconate 30 mg PO DAILY 90 days HPI HPI Comments History of Present Illness Details The patient is a pleasant 37 year old female who returns to the clinic for pre-operative surgical weight loss management. They were last seen in the office on 02/06/2023, recorded weight at that time was to 85.8 pounds, with a BMI of 50.6. Today's weight is 257.6 pounds and BMI is 45.6. There has been a weight loss of 31.4 pounds since initiating the surgical weight loss program on 01/03/2023 with a total body weight loss of 10.8 %. Pre op work up completed as follows: SWL classes:? [] appts: Cleared-02/26/2023? ? RD appts: Cleared-02/11/2023 Labs: 02/06/23-low a, zinc H. pylori: 02/06/23-negative CXR: Not yet done at [facility], done at [facility] but not faxed over EKG: Not yet at [facility], done at [facility] but not faxed over ABD U/S: 03/19/23 UGI: 03/19/23 The patient reports she has covid and has been out of work. She has had intermittent menorrhagia and has been started on oral BCP by her Local Owner Operator Truck Driver. She states she has been very regimented with the meal plan and exercise plan. Current meal plan includes: 1 Celebrate Rebuild m[place]ake ([employer], [employer], [employer]), (2 scoops in 20 oz unsweetened almond milk) at 7am-9am 2 protein bars (Celebrate bars) at 10am- 12pm and another one at 2pm-4pm Dinner at 530-6pm (10 forks of protein and 10 forks of salad/vegetables). Drinking 60 oz daily Current exercise plan includes: walking 45 minutes 3 x per week, 2 days per week pilates video x 30 min Just joined PF treadmill 15 minutes, stretching, bike /elliptical PFSH Surgical History (Updated 01/03/23 @ 16:06 by DONNA Aceves) Hx of breast reduction, elective Family History (Updated 01/03/23 @ 16:10 by DONNA Aceves) Mother No problems noted. 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 She states that she will have [facility] fax over her chest x-ray and EKG. Continue current meal plan. Recommend increasing gym days to 4 and home Pilates videos to with tracking calories at the gym, goal 400 calories burned at the gym. Reminded of upcoming appointments for diagnostic imaging. Follow-up in the office in 3-4 weeks. Telehealth Telehealth Location of provider rendering services: practice address Location of patient: address on file Patient Identification confirmed using: Name, : Yes Telehealth method: voice only Patient verbally consented to treatment: Yes Patient verbally consented to billing insurance company: Yes Patient informed of any privacy concerns related to visit: Yes Minutes spent on Phone/Video with Pt.: 20 Coding Level of Care Code Tele Est Pt Level 3 (90684) Diagnoses Morbid obesity E66.01 Time Spent (min) 25
== END 2023-03-06 15:19 | disposition home or self-care (01) ==
LOC: HO.HBS 15:02
PROVIDERS: PCP Family Medicine; Visit Provider Physician Assistant Surgical
DX: E66.01 Morbid (severe) obesity due to excess calories (principal)
CPT/HCPCS: 99213

== ENCOUNTER → 2023-03-06 15:02 | Outpatient (BNVA) | payer OTHER, SELFPAY | PROVIDERS: PCP Family Medicine; Visit Provider Physician Assistant Surgical ==

== ENCOUNTER 2023-12-02 19:05 | Emergency (ER) | payer OTHER, SELFPAY ==
[2023-12-02 19:07] VITALS: BP 132/88; PULSE 102; RESP 20; TEMP 37; O2SAT 98; BMI 54.7
--- NOTE | 2023-12-02 19:11 | ED.SKABFB ---
HPI - Skin/Abscess/Foreign Bdy General Chief complaint: Skin/Abscess/Foreign Body Stated complaint: abcess Time Seen by Provider: 12/02/23 21:37 Source: patient Mode of arrival: ambulatory Limitations: no limitations History of Present Illness ED Provider: tom BARRETT narrative: Patient's history of recurrent abscesses comes here with 3 days of small abscess in the suprapubic in groin area which are painful no fever no surrounding erythema Related Data Home Medications ?Medication ?Instructions ?Recorded ?Confirmed fluticasone propionate 110 2 puff inhalation BID 01/03/23 03/06/23 mcg/actuation HFA aerosol inhaler (Flovent HFA) lisinopril 5 mg tablet 5 mg PO DAILY 01/03/23 03/06/23 melatonin 5 mg capsule mg PO BEDTIME PRN 01/10/23 03/06/23 multivitamin w minerals PO DAILY 01/10/23 03/06/23 topiramate 25 mg tablet 25 mg PO DAILY 01/10/23 03/06/23 norethindrone (contraceptive) 0.35 0.35 mg PO DAILY 03/06/23 03/06/23 mg tablet Previous Rx's ?Medication ?Instructions ?Recorded zinc gluconate 30 mg tablet 30 mg PO DAILY 90 days #90 tabs 02/11/23 vitamin A palmitate 3,000 mcg 3,000 mcg PO DAILY 90 days #90 caps 02/12/23 (10,000 unit) capsule cephalexin 500 mg capsule 500 mg PO QID 10 days #40 caps 12/02/23 doxycycline hyclate 100 mg tablet 100 mg PO BID #20 tabs 12/02/23 Allergies Allergy/AdvReac Type Severity Reaction Status Date / Time acetaminophen [From Vicodin] Allergy Intermediate Hives Verified 01/03/23 16:00 hydrocodone [From Vicodin] Allergy Intermediate Hives Verified 01/03/23 16:00 Sulfa (Sulfonamide Allergy Rash Verified 12/02/23 19:10 Antibiotics) Review of Systems Review of Systems: Yes all other systems are reviewed and are negative PMFSH Past Medical History Surgical History Hx of breast reduction, elective Family History Family History Mother No problems noted. 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 Oriented X3. No acute distress. CVS: Normal heart rate and rhythm. Pulses normal. Respiratory: No respiratory distress. Equal air entry bilateral, Abdomen: Soft and nontender. Bowel sounds are present, Skin: Skin warm and dry. Normal skin color. Normal skin turgor. Small folliculitis abscess in his left suprapubic area and left groin Extremities: No lower extremity edema. No calf tenderness Neuro: Oriented X 3. Course Course Course Narrative: This is a Rapid Medical Examination (RME) performed by Trudy Golden PA-C in triage. Full HPI, ROS, assessment and treatment plan per primary provider in the Main ED. 38 yo female here for eval of multiple abscesses to her inner thighs x weeks. Seen at [facility] for I&D 2-3 weeks ago for same. discharged her on doxycycline however once culture returned, this was switched to . did not complete the entire course as the antibiotic upset her stomach. cannot recall the antibiotic that was prescribed, + area not examined in triage d/t privacy concerns Plan: basic labs, further eval by primary provider Medications Administered Discontinued Medications Generic Name Dose Route Start Last Admin Trade Name Freq PRN Reason Stop Dose Admin Cephalexin HCl 500 mg 12/02/23 22:15 12/02/23 22:28 Cephalexin 500 Mg Capsule PO 12/02/23 22:16 500 mg ONCE ONE Administration Doxycycline Monohydrate 100 mg 12/02/23 22:15 12/02/23 22:28 Doxycycline Monohydrate 100 Mg Capsule PO 12/02/23 22:16 100 mg ONCE ONE Administration Lidocaine HCl 5 ml 12/02/23 22:54 12/02/23 23:00 Lidocaine Hcl 1 % 20 Ml Vial SUBCUT 12/02/23 22:55 5 ml ONCE ONE Administration Medical Decision Making Lab Data 12/02/23 20:50 12/02/23 20:50 Labs: Lab Results 12/02/23 Range/Units 20:50 WBC 9.5 (4.8-10.8) X10*3/uL RBC 4.58 (4.20-5.50) X10*6/uL Hgb 10.8 L (12.0-16.0) g/dl Hct 35.4 L (37.0-47.0) % MCV 77.3 L (80.0-98.0) fL MCH 23.6 L (27.0-33.0) pg MCHC 30.5 L (31.0-35.0) g/dl RDW 15.2 (11.0-16.0) % Plt Count 266 (160-400) X10*3/uL MPV 10.3 (9.4-12.3) fL Immature Gran % (Auto) 1.4 H (0.0-0.4) % Neut % (Auto) 62.9 (45-73) % Lymph % (Auto) 23.5 (20-40) % [place] % (Auto) 5.2 (2-11) % Eos % (Auto) 6.6 H (0-4) % Baso % (Auto) 0.4 (0-2) % Lymph # (Auto) 2.2 (1.2-4.9) X10*3/uL [place] # (Auto) 0.5 (0.1-1.2) X10*3/uL Eos # (Auto) 0.6 H (0.0-0.4) X10*3/uL Baso # (Auto) 0.0 (0.0-0.2) X10*3/uL Abs Immat Gran (auto) 0.13 H (0.00-0.03) X10*3/uL Absolute Neuts (auto) 6.0 (2.0-8.3) x10*3/uL Absolute Nucleated RBC 0.000 (0.0-0.012) X10*3/uL Nucleated RBC % (auto) 0.0 (0.0-0.2) /100WBC Sodium 143 (135-145) mmol/L Potassium 3.6 (3.3-5.1) mmol/L Chloride 107 (96-108) mmol/L Carbon Dioxide 27 (22-29) mmol/L Anion Gap 13 (12-20) BUN 14 (9-16) mg/dL Creatinine 0.81 (0.5-1.4) mg/dL Estim Creat Clear Calc 118.3 Estimated GFR > 60 Random Glucose 91 (60-115) mg/dL Calcium 9.1 (8.4-10.2) mg/dL Total Bilirubin 0.2 (0.0-1.0) mg/dL AST 12 (5-31) U/L ALT 13 (0-31) U/L Alkaline Phosphatase 153 H (39-117) U/L Total Protein 7.1 (6.5-8.0) g/dL Albumin 4.0 (3.5-5.0) g/dL Procedures Abscess I/D Site: abdomen (Suprapubic) Side (if applicable): left Local Anesthetic: lidocaine 1% Amount of anesthesia used (mL): 2 Technique: needle aspiration Amount of fluid expressed (mL): 0.5 Sent for culture/gram staining?: No Irrigation: No Packing used?: none Discharge Plan Discharge Clinical Impression: Folliculitis Patient Disposition: Home, Self-Care Instructions: Folliculitis (ED) Additional Instructions: Take antibiotic as prescribed Take antibiotics as prescribed Follow with PCP if not better Prescriptions: New cephalexin 500 mg capsule 500 mg PO QID 10 Days Qty: 40 0RF doxycycline hyclate 100 mg tablet 100 mg PO BID Qty: 20 0RF No Action zinc gluconate 30 mg tablet 30 mg PO DAILY 90 Days Qty: 90 0RF vitamin A palmitate 3,000 mcg (10,000 unit) capsule 3,000 mcg PO DAILY 90 Days Qty: 90 0RF lisinopril 5 mg tablet 5 mg PO DAILY fluticasone propionate [Flovent HFA] 110 mcg/actuation HFA aerosol inhaler 2 puff inhalation BID topiramate 25 mg tablet 25 mg PO DAILY melatonin 5 mg capsule PO BEDTIME PRN multivitamin w minerals PO DAILY norethindrone (contraceptive) 0.35 mg tablet 0.35 mg PO DAILY Interventions: ED Discharge Assessment Last Done: 12/02/23 23:00 Discharge Date/Time: 12/02/23 22:45 Print Language: [place]
[2023-12-02 20:54] LABS: MANUAL DIFF FLAG NO
[2023-12-02 21:12] LABS: Alanine Aminotransferase 13 U/L (0-31); Alkaline Phosphatase 153 U/L (39-117); Anion Gap 13 (12-20); Aspartate Amino Transferase 12 U/L (5-31); Bilirubin Total 0.2 mg/dL (0.0-1.0); Blood Urea Nitrogen 14 mg/dL (9-16); Calcium 9.1 mg/dL (8.4-10.2); Carbon Dioxide 27 mmol/L (22-29); Chloride 107 mmol/L (96-108); Creatinine Clr Calc Pharmacy 118.3; Estimated Glomerular Filt Rate > 60; Glucose Random 91 mg/dL (60-115); Potassium 3.6 mmol/L (3.3-5.1); Sodium 143 mmol/L (135-145); Total Protein 7.1 g/dL (6.5-8.0)
[2023-12-02 21:29] LABS: Basophils Percent Auto 0.4 % (0-2); Eosinophils Absolute Auto 0.6 X10*3/uL (0.0-0.4); Eosinophils Percent Auto 6.6 % (0-4); Hematocrit 35.4 % (37.0-47.0); Hemoglobin 10.8 g/dl (12.0-16.0); Imm Gran Abs Auto 0.13 X10*3/uL (0.00-0.03); Imm Gran Pct Auto 1.4 % (0.0-0.4); Lymphocytes Absolute Auto 2.2 X10*3/uL (1.2-4.9); Lymphocytes Percent Auto 23.5 % (20-40); Mean Corpuscular HGB Conc 30.5 g/dl (31.0-35.0); Mean Corpuscular Hemoglobin 23.6 pg (27.0-33.0); Mean Corpuscular Volume 77.3 fL (80.0-98.0); Mean Platelet Volume 10.3 fL (9.4-12.3); Monocytes Absolute Auto 0.5 X10*3/uL (0.1-1.2); Monocytes Percent Auto 5.2 % (2-11); Neutrophils Percent Auto 62.9 % (45-73); Platelet Count 266 X10*3/uL (160-400); Red Blood Count 4.58 X10*6/uL (4.20-5.50); Red Cell Distribution Width 15.2 % (11.0-16.0); White Blood Count 9.5 X10*3/uL (4.8-10.8)
[2023-12-02 21:44] VITALS: BP 130/77; PULSE 93; RESP 18; TEMP 36.3; O2SAT 96
[2023-12-02] MEDS: cephALEXin 500 MG CAPSULE PO (22:28)
[2023-12-02] MEDS: Doxycycline Monohydrate 100 MG CAPSULE PO (22:28)
[2023-12-02 23:00] VITALS: BP 134/84; PULSE 69; RESP 16; TEMP 36.3; O2SAT 98
[2023-12-02] MEDS: Lidocaine HCl 1 % 20 ML VIAL 5 ML SUBCUT (23:00)
== END 2023-12-02 22:45 | disposition home or self-care (01) ==
PROVIDERS: Physician Assistant Medical; Emergency Provider Internal Medicine; PCP Family Medicine
DX: L02.214 Cutaneous abscess of groin (principal); L73.8 Other specified follicular disorders; Z79.899 Other long term (current) drug therapy
CPT/HCPCS: 10060; 36415; 80053; 85025; 99284